=== PATIENT | female | born 1990 | race Caucasian/White ===

== ENCOUNTER 2018-09-01 00:16 | Emergency (ER) | payer OTHER | END 2018-09-01 01:08 | disposition home or self-care (01) | LOC: E/R 00:16 | DX: O9A.211 Injury, poisoning and certain other consequences of external causes complicating pregnancy, first trimester (principal); S30.0XXA Contusion of lower back and pelvis, initial encounter; W18.2XXA Fall in (into) shower or empty bathtub, initial encounter; Y92.9 Unspecified place or not applicable; Z3A.01 Less than 8 weeks gestation of pregnancy | CPT/HCPCS: 99282; Z7502 ==

== ENCOUNTER 2018-11-25 08:51 | Inpatient (IN) | payer OTHER, MEDICAID ==
[2018-11-25] MEDS ORDERED: DEXTROSE 5%-LR 1,000 ML IV (09:51)
[2018-11-25 09:55] LABS: ADD MAN DIFF? NO
[2018-11-25 09:59] LABS: BASOPHIL # 0.1 10^3/ul (0.0-0.1); BASOPHILS % 0.5 % (0.0-2.0); EOSINOPHILS # 0.2 10^3/ul (0.0-0.5); EOSINOPHILS % 1.4 % (0.0-7.0); HEMATOCRIT 34.9 % (37.0-47.0); HEMOGLOBIN 11.5 g/dl (12.0-16.0); LYMPHOCYTES # 2.4 10^3/ul (0.8-2.9); LYMPHOCYTES % 21.5 % (15.0-51.0); MEAN CORPUSCULAR HEMOGLOBIN 30.3 pg (29.0-33.0); MEAN CORPUSCULAR VOLUME 91.8 fl (82.0-101.0); MEAN PLATELET VOLUME 11.8 fl (7.4-10.4); MONOCYTE # 0.9 10^3/ul (0.3-0.9); MONOCYTES % 8.1 % (0.0-11.0); NEUTROPHIL # 7.4 10^3/ul (1.6-7.5); NEUTROPHILS % 67.2 % (39.0-77.0); PLATELET COUNT 148 10^3/UL (140-415); RED CELL DISTRIBUTION WIDTH 12.7 % (11.5-14.5)
[2018-11-25 09:59] LABS: WHITE BLOOD COUNT 11.1 10^3/ul (4.8-10.8)
[2018-11-25] MEDS ORDERED: IBUPROFEN 600 MG TAB PO (10:00)
[2018-11-25] MEDS ORDERED: METHYLERGONOVINE 0.2 MG INJ IM (10:00)
[2018-11-25] MEDS ORDERED: LIDOCAINE 1% (MPF) 30 ML INJ INJ (10:00)
[2018-11-25] MEDS ORDERED: MISOPROSTOL 200 MCG TAB PR (10:00)
[2018-11-25] MEDS ORDERED: CARBOPROST 250 MCG INJ IM (10:00)
[2018-11-25] MEDS ORDERED: OXYTOCIN 30 UNITS/LR 500 ML IV (10:00)
[2018-11-25] MEDS ORDERED: BUTORPHANOL 2 MG INJ IV (10:00)
[2018-11-25 10:18] LABS: INR 0.79; PT RATIO 0.9
[2018-11-25 10:19] LABS: PARTIAL THROMBOPLASTIN TIME 30.9 Sec (23.0-35.0)
[2018-11-25 11:38] LABS: HEPATITIS B SURFACE ANTIGEN NEGATIVE (NEGATIVE)
[2018-11-25] MEDS: LACTATED RINGER'S 1,000 ML IV ×3 (11:46→17:46)
[2018-11-25 14:50] LABS: RAPID PLASMA REAGIN NONREACTIVE (NR)
[2018-11-25] MEDS ORDERED: FENTAnyl 2MCG/ML-ROPIV 0.2% 100 ML (16:18)
[2018-11-25] MEDS ORDERED: NALOXONE (0.4 MG/ML) INJ IV (16:30)
[2018-11-25] MEDS: FENTAnyl 2MCG/ML-ROPIV 0.2% 100 ML BAG EPI (17:15)
[2018-11-25] MEDS: OXYTOCIN 30 UNITS/LR 500 ML IV ×3 (20:05→23:23)
[2018-11-26] MEDS ORDERED: DEXTROSE 5%-LR 1,000 ML IV (00:17)
[2018-11-26] MEDS: LACTATED RINGER'S 1,000 ML IV* (00:17)
[2018-11-26] MEDS ORDERED: METHYLERGONOVINE 0.2 MG INJ IM (00:30)
[2018-11-26] MEDS ORDERED: OXYTOCIN 30 UNITS/LR 500 ML IV (00:30)
[2018-11-26] MEDS ORDERED: MISOPROSTOL 200 MCG TAB PR (00:30)
[2018-11-26] MEDS ORDERED: ACETAMINOPHEN 325 MG TAB PO (00:30)
[2018-11-26] MEDS ORDERED: DIBUCAINE 1% 30 GM OINT TOP (00:30)
[2018-11-26] MEDS ORDERED: ONDANSETRON 4 MG INJ IV (00:30)
[2018-11-26] MEDS ORDERED: DIPHENHYDRAMINE 50 MG INJ IV (00:30)
[2018-11-26] MEDS ORDERED: ZOLPIDEM 5 MG TAB PO (00:30)
[2018-11-26] MEDS ORDERED: CARBOPROST 250 MCG INJ IM (00:30)
[2018-11-26] MEDS ORDERED: SENNA/DOCUSATE NA (8.6MG/50MG) TAB PO (00:30)
[2018-11-26] MEDS: OXYCODONE/ASPIRIN (4.88/325) TAB PO (02:32)
[2018-11-26] MEDS: WITCH HAZEL/GLYCERIN PAD PR (02:33)
[2018-11-26] MEDS: BENZOCAINE 20% 56 ML SPRAY TOP (02:33)
[2018-11-26] MEDS: LANOLIN HPA 1 PKT TOP (02:34)
[2018-11-26] MEDS: IBUPROFEN 600 MG TAB PO ×3 (05:40→18:18)
[2018-11-26 15:17] LABS: ADD MAN DIFF? NO
[2018-11-26 15:18] LABS: WHITE BLOOD COUNT 14.4 10^3/ul (4.8-10.8)
[2018-11-26 15:18] LABS: BASOPHILS % 0.3 % (0.0-2.0); EOSINOPHILS # 0.1 10^3/ul (0.0-0.5); EOSINOPHILS % 0.4 % (0.0-7.0); HEMOGLOBIN 10.2 g/dl (12.0-16.0); LYMPHOCYTES # 2.9 10^3/ul (0.8-2.9); LYMPHOCYTES % 19.8 % (15.0-51.0); MEAN CORPUSCULAR HEMOGLOBIN 30.6 pg (29.0-33.0); MEAN CORPUSCULAR HGB CONC 32.9 g/dl (32.0-37.0); MEAN CORPUSCULAR VOLUME 93.1 fl (82.0-101.0); MEAN PLATELET VOLUME 12.7 fl (7.4-10.4); MONOCYTE # 1.1 10^3/ul (0.3-0.9); MONOCYTES % 7.6 % (0.0-11.0); NEUTROPHIL # 10.3 10^3/ul (1.6-7.5); NEUTROPHILS % 71.1 % (39.0-77.0); PLATELET COUNT 138 10^3/UL (140-415); RED BLOOD COUNT 3.33 10^6/ul (4.20-5.40)
[2018-11-27] MEDS: IBUPROFEN 600 MG TAB PO ×3 (00:30→12:05)
[2018-11-27] MEDS: MEASLES,MUMPS,RUBELLA VACCINE INJ SC* (15:42)
== END 2018-11-27 16:45 | disposition home or self-care (01) | DRG 807 ==
LOC: OBT 08:51 → PP1 11-26 01:34 → L-D 08:52 → OBT 09:27 → L-D 09:20
PROVIDERS: Obstetrics & Gynecology
PROC: 10E0XZZ Delivery of Products of Conception, External Approach (ICD-10-PCS; principal; 2018-11-25)
DX: O80 Encounter for full-term uncomplicated delivery (principal); Z37.0 Single live birth; Z3A.38 38 weeks gestation of pregnancy
CPT/HCPCS: 62319; 85025; 85610; 85730; 86592; 86900; 86901; 87340; 90686; 99464